=== PATIENT | male | born 2000 | race African-American/Black ===

== ENCOUNTER 2019-10-21 09:14 | Emergency (ER) | payer OTHER | END 2019-10-21 11:30 | disposition home or self-care (01) | LOC: M ED 09:14 | DX: K59.00 Constipation, unspecified (principal); K64.9 Unspecified hemorrhoids; F17.210 Nicotine dependence, cigarettes, uncomplicated ==

== ENCOUNTER 2020-07-03 07:03 | Emergency (ER) | payer OTHER ==
[~2020-07-03] VITALS: Ht 172.7 cm; Wt 86.3 kg
[2020-07-03 07:03] VITALS: BP 144/82
[2020-07-03] MEDS ORDERED: LIDOCAINE 5% (LIDODERM) PATCH TD ONE (07:25)
[2020-07-03] MEDS ORDERED: IBUPROFEN 800 MG TAB PO ONE (07:25)
[2020-07-03] MEDS ORDERED: LIDO5DIS41 TOP (07:38)
[2020-07-03] MEDS ORDERED: CYCL5TAB PO (07:38)
[2020-07-03] MEDS ORDERED: IBUP80TA PO (07:38)
[2020-07-03] MEDS ORDERED: **NOTE PATIENT COMMENT** MISC XX SCH (21:00)
== END 2020-07-03 07:53 | disposition home or self-care (01) ==
LOC: M ED 07:03
DX: S39.012A Strain of muscle, fascia and tendon of lower back, initial encounter (principal); X50.9XXA Other and unspecified overexertion or strenuous movements or postures, initial encounter; Y92.89 Other specified places as the place of occurrence of the external cause